=== PATIENT | female | born 1955 | race Caucasian/White ===

== ENCOUNTER → 2017-06-27 | Outpatient (CLI) | payer MEDICAID ==
[2017-06-27 11:24] LABS: ALT 41 U/L (9-52); AST 25 U/L (14-36); Alkaline Phosphatase 72 U/L (38-126); Anion Gap 11 mmol/L; Blood Urea Nitrogen 10 mg/dL (7-17); Calcium 9.4 mg/dL (8.4-10.2); Carbon Dioxide 25 mmol/L (22-30); Chloride 106 mmol/L (98-107); Cholesterol 143 mg/dL (<200); Glucose 130 mg/dL (74-99); HDL Cholesterol 51 mg/dL (40-60); Non-African American GFR(MDRD) >60 (>60 ml/min/1.73 sqM); Potassium 4.2 mmol/L (3.5-5.1); Sodium 142 mmol/L (137-145); Total Bilirubin 0.5 mg/dL (0.2-1.3); Total Protein 6.4 g/dL (6.3-8.2)
[2017-06-27 16:55] LABS: Urine Creatinine 73.3 mg/dL
== END | disposition home or self-care (01) ==
LOC: LABWHC1 10:21
PROVIDERS: ATTEND Family Medicine
DX: E11.9 Type 2 diabetes mellitus without complications (principal); I10 Essential (primary) hypertension; E78.5 Hyperlipidemia, unspecified
CPT/HCPCS: 36415; 80053; 80061; 82043; 82570; 83036; 84439; 84443

== ENCOUNTER → 2018-01-05 | Outpatient (CLI) | payer MEDICAID ==
[2018-01-05 10:51] LABS: ALT 32 U/L (9-52); AST 19 U/L (14-36); Albumin 4.1 g/dL (3.5-5.0); Alkaline Phosphatase 81 U/L (38-126); Anion Gap 15 mmol/L; Blood Urea Nitrogen 15 mg/dL (7-17); Carbon Dioxide 24 mmol/L (22-30); Chloride 104 mmol/L (98-107); Cholesterol 153 mg/dL (<200); Glucose 136 mg/dL (74-99); HDL Cholesterol 49 mg/dL (40-60); LDL Cholesterol,Calculated 75 mg/dL (0-99); Potassium 4.3 mmol/L (3.5-5.1); Sodium 143 mmol/L (137-145); Total Bilirubin 0.5 mg/dL (0.2-1.3); Total Protein 6.4 g/dL (6.3-8.2); Triglycerides 147 mg/dL (<150)
[2018-01-05 11:07] LABS: T4, Free (Free Thyroxine) 1.23 ng/dL (0.78-2.19)
== END | disposition home or self-care (01) ==
LOC: LABWHC1 09:46
PROVIDERS: ATTEND Family Medicine
DX: E11.9 Type 2 diabetes mellitus without complications (principal); I10 Essential (primary) hypertension; E78.5 Hyperlipidemia, unspecified
CPT/HCPCS: 36415; 80053; 80061; 82043; 82570; 83036; 84439; 84443

== ENCOUNTER → 2018-07-16 | Outpatient (CLI) | payer MEDICAID ==
--- NOTE | 2018-07-17 11:40 | MM ---
Reason for exam: screening (asymptomatic). Last mammogram was performed 2 years and 1 month ago. History: Patient is postmenopausal. Benign excisional biopsy of the right breast, 2004. Physical Findings: A clinical breast exam by your physician is recommended on an annual basis and results should be correlated with mammographic findings. MG Screening Mammo w CAD Bilateral CC and MLO view(s) were taken. Prior study comparison: June 21, 2016, bilateral MG screening mammo w CAD. December 01, 2014, bilateral MG screening mammo w CAD. The breast tissue is heterogeneously dense. This may lower the sensitivity of mammography. Benign appearing bilateral calcifications. No suspicious abnormality. Right biopsy marker. No significant changes when compared with prior studies. ASSESSMENT: Benign, BI-RAD 2 RECOMMENDATION: Routine screening mammogram of both breasts in 1 year.
== END ==
LOC: RADMAMWWP 16:45
PROVIDERS: ATTEND Family Medicine
DX: Z12.31 Encounter for screening mammogram for malignant neoplasm of breast (principal)
CPT/HCPCS: 77067

== ENCOUNTER → 2019-01-18 | Outpatient (CLI) | payer MEDICAID ==
[2019-01-18 12:32] LABS: Basophils % (A) 0 %; Eosinophils # (A) 0.1 k/uL (0-0.7); Eosinophils % (A) 1 %; HGB 13.5 gm/dL (11.4-16.0); Lymphocytes # (A) 1.7 k/uL (1.0-4.8); Lymphocytes % (A) 22 %; MCH 27.1 pg (25.0-35.0); MCHC 32.3 g/dL (31.0-37.0); Monocytes # (A) 0.4 k/uL (0-1.0); Monocytes % (A) 5 %; Neutrophils # (A) 5.8 k/uL (1.3-7.7); Neutrophils % (A) 72 %; Platelet Count 350 k/uL (150-450); RBC 4.99 m/uL (3.80-5.40); RDW 14.3 % (11.5-15.5); WBC 8.1 k/uL (3.8-10.6)
[2019-01-18 17:00] LABS: Albumin 4.6 g/dL (3.80-4.90); Albumin/Globulin Ratio 2.88 (1.60-3.17); Calcium 9.6 mg/dL (8.7-10.3); Globulin 1.6 g/dL (1.6-3.3); LDL Cholesterol,Calculated 93.8 mg/dL (0.0-131.0); Potassium 4.2 mmol/L (3.5-5.5); Total Bilirubin 0.6 mg/dL (0.2-1.2); Total Protein 6.2 g/dL (6.2-8.2); VLDL Calculation 24.2 mg/dL (5.00-40.00)
[2019-01-18 17:07] LABS: T4, Free (Free Thyroxine) 1.5 ng/dL (0.80-1.80)
[2019-01-18 18:38] LABS: Hemoglobin A1C 7.2 % (4.0-6.0)
== END ==
LOC: LABWHC1 11:02
PROVIDERS: ATTEND Family Medicine
DX: E11.9 Type 2 diabetes mellitus without complications (principal); E78.5 Hyperlipidemia, unspecified
CPT/HCPCS: 36415; 80053; 80061; 82043; 82570; 83036; 84439; 84443; 85025

== ENCOUNTER → 2019-05-05 | Day surgery (SDC) | payer MEDICAID ==
[2019-04-30 15:33] VITALS: BMI 38.7
[~2019-05-05] MED LIST: LACTATED RINGERS 1,000 ML IV SCH; LIDOCAINE 1% 20 ML VIAL (10MG/ML) FOR IV START INTRADERMA PRN; PROPOFOL 10 MG/ML 20 ML VIAL IV ONE
[2019-05-05 10:20] VITALS: TEMP 98.4
[2019-05-05 10:47] LABS: Glucose,Whole Blood 174 mg/dL (75-99)
--- NOTE | 2019-05-05 10:48 | P.GSHP ---
History of Present Illness H&P Date: 05/05/19 Chief Complaint: GI bleed This a 63-year-old female who presents today for colonoscopy. Patient never had a colonoscopy before. She's had issues with GI bleed. Past Medical History Past Medical History: Diabetes Mellitus, Hyperlipidemia, Hypertension Additional Past Medical History / Comment(s): Hx CYST ON BACK. History of Any Multi-Drug Resistant Organisms: None Reported Additional Past Surgical History / Comment(s): POLYP EXC ON VOCAL CORD, D&C Past Anesthesia/Blood Transfusion Reactions: No Reported Reaction Smoking Status: Former smoker - Past Family History Father Family Medical History: Cancer Additional Family Medical History / Comment(s): prostate Medications and Allergies Home Medications Medication Instructions Recorded Confirmed Type Losartan/Hydrochlorothiazide 1 tab PO DAILY 01/02/15 04/30/19 History [Losartan-Hctz 100-12.5 mg Tab] Oxybutynin Xl [Ditropan Xl] 5 mg PO DAILY 01/02/15 04/30/19 History Simvastatin 20 mg PO HS 01/02/15 04/30/19 History glipiZIDE XL [Glucotrol XL] 10 tab PO BID 01/02/15 04/30/19 History metFORMIN HCL 1,000 mg PO BID 01/02/15 04/30/19 History Allergies Allergy/AdvReac Type Severity Reaction Status Date / Time No Known Allergies Allergy Verified 04/30/19 15:26 Surgical - Exam Vital Signs Temp Pulse Resp BP Pulse Ox 98.4 F 102 H 18 142/65 93 L 05/05/19 10:19 05/05/19 10:19 05/05/19 10:19 05/05/19 10:19 05/05/19 10:19 - General well developed, well nourished, no distress - Eyes PERRL - ENT normal pinna - Neck no masses - Respiratory normal expansion - Cardiovascular Rhythm: regular - Abdomen Abdomen: soft, non tender Results - Labs Abnormal Lab Results - Last 24 Hours (Table) 05/05/19 Range/Units 10:29 POC Glucose (mg/dL) 174 H (75-99) mg/dL Assessment and Plan Assessment: GI bleed. We'll perform colonoscopy.
[2019-05-05 11:06] VITALS: RESP 17
--- NOTE | 2019-05-05 11:06 | P.OP ---
Date of Procedure: 05/05/19 Preoperative Diagnosis: GI bleed Screening colonoscopy Postoperative Diagnosis: Right colon polyps Internal hemorrhoids Procedure(s) Performed: Colonoscopy Anesthesia: MAC Surgeon: Aneesh Kowalski Estimated Blood Loss (ml): 5 Pathology: other (Colon polyp) Condition: stable Disposition: PACU Description of Procedure: The patient's placed on the endoscopy table in the lateral position. She received IV sedation. Digital rectal exam was performed which revealed internal hemorrhoids. The flexible colonoscope was then placed patient anus passed throughout the entire colon. The ileocecal valve was visualized. The cecum appeared normal. Just above the ileocecal valve there was several small sessile polyps. This removed with a cold forcep. The remainder the ascending, transverse and descending colon appeared normal. The sigmoid colon appeared normal. The scope was then brought back the rectum and this was normal. Scope was withdrawn. The anus and there were internal hemorrhoids noted. Scope was withdrawn for patient. Patient was presented to have bleeding from internal hemorrhoids.
[2019-05-05 11:20] VITALS: BP 109/53; PULSE 83
== END | disposition home or self-care (01) ==
LOC: ORWHC2ENDO 09:44
PROVIDERS: ATTEND Surgery
DX: K64.8 Other hemorrhoids (principal); D12.0 Benign neoplasm of cecum; E11.9 Type 2 diabetes mellitus without complications; E78.5 Hyperlipidemia, unspecified; I10 Essential (primary) hypertension; Z79.84 Long term (current) use of oral hypoglycemic drugs; Z87.891 Personal history of nicotine dependence
CPT/HCPCS: 88305; 45380; J2704

== ENCOUNTER → 2023-12-31 | Outpatient (CLI) | payer MEDICAID ==
--- NOTE | 2024-01-01 20:19 | MM ---
Reason for Exam: Screening (asymptomatic). Last mammogram was performed 5 year(s) and 5 month(s) ago. Patient History: Menarche at age 15. First Full-Term at age 21. Postmenopausal. Patient used Hormonal Contraceptives for 10 years. 2004, Benign Excisional Biopsy on the right side. Risk Values: Elizabeth 5 year model risk: 1.4%. NCI Lifetime model risk: 5.2%. Prior Study Comparison: 12/01/2014 Bilateral Screening Mammogram, [facility]. 06/21/2016 Bilateral Screening Mammogram, [facility]. 07/16/2018 Bilateral Screening Mammogram, [facility]. Tissue Density: The breasts are heterogeneously dense, which may obscure small masses. Findings: Analyzed By CAD. The pattern is symmetrical. Pattern appears stable. A core marker is within the right breast. Chronic nodularity is within the right breast. This is stable in size. No suspicious groups of microcalcifications, spiculated or lobular masses, architectural distortion or other secondary signs of malignancy are mammographically apparent. Overall Assessment: Benign, BI-RAD 2 Management: Screening Mammogram of both breasts in 1 year. A negative mammogram report should not preclude additional follow up of suspicious palpable abnormalities. Patient should continue monthly self breast exam. A clinical breast exam by your physician is recommended on an annual basis and results should be correlated with mammographic findings. Note on Elizabeth scores and lifetime risk: 1. A Elizabeth score greater than 3% is considered moderate risk. If this is the case, consider specialist referral to assess eligibility for a risk reducing agent. 2. If overall lifetime risk for the development of breast cancer is 20% or higher, the patient may qualify for future screening with alternating mammogram and breast MRI. Electronically signed and approved by: Valentín Elise D.O. Radiologis
== END | disposition home or self-care (01) ==
LOC: RADMAMWWP 16:10
PROVIDERS: ATTEND Family Medicine
DX: Z12.31 Encounter for screening mammogram for malignant neoplasm of breast (principal); Z78.0 Asymptomatic menopausal state
CPT/HCPCS: 77067